=== PATIENT | female | born 2000 | race Asian ===

== ENCOUNTER 2022-07-02 10:42 | Outpatient (CLI) | payer OTHER, SELFPAY | END 2022-07-02 10:43 | disposition home or self-care (01) | PROVIDERS: PCP Family Medicine; Visit Provider Family Medicine | DX: Z01.419 Encounter for gynecological examination (general) (routine) without abnormal findings (principal); R11.2 Nausea with vomiting, unspecified; Z13.6 Encounter for screening for cardiovascular disorders; F41.9 Anxiety disorder, unspecified | CPT/HCPCS: 80053; 80061; 84443; 84703 ==